=== PATIENT | female | born 1950 | race Caucasian/White ===

== ENCOUNTER → 2017-01-01 | Outpatient (CLI) | payer BC, OTHER ==
[~2017-01-01] VITALS: Ht 162.6 cm; Wt 68.3 kg
[~2017-01-01] MED LIST: ACET325T96 PO; BUPR-79 PO; FLVHFA110 INH; LEVA45AE INH; LISI40TA PO; METO50TA16 PO; PRLSR20 PO; RANI300T2 PO; SIMV40TA2 PO; UMEC1AER INH
[2017-01-01 09:38] VITALS: Ht 162.6 cm; Wt 68.3 kg
--- NOTE | 2017-01-01 10:15 | PAT Medication Instructions ---
Service Date Jan 01, 2017. Current Home Medication List Acetaminophen Tab (Tylenol), 650 MG PO PRN Bupropion (Wellbutrin Sr), 150 MG PO QAM Fluticasone Propionate (Flovent Hfa), 1 PUFFS INH BID Levalbuterol Tartrate (Levalbuterol Tartrate Hfa), 1 PUFF INH QAM Lisinopril (Zestril), 40 MG PO QAM Metoprolol Tartrate (Lopressor) (Lopressor), 50 MG PO BID Omeprazole (Prilosec), 40 MG PO QAM Ranitidine (Zantac), 300 MG PO QAM Simvastatin (Zocor), 40 MG PO for AM Umeclidinium-Vilanterol (Anoro Ellipta 62.5-25 Mcg/INH), 1 DOSE INH QAM Medication Instructions For Your Scheduled Surgery - Hold the following medications the morning of surgery: Lisinopril (Zestril), 40 MG PO QAM - Take the following medications the morning of surgery with a sip of water: Umeclidinium-Vilanterol (Anoro Ellipta 62.5-25 Mcg/INH), 1 DOSE INH QAM Ranitidine (Zantac), 300 MG PO QAM Simvastatin (Zocor), 40 MG PO for AM Omeprazole (Prilosec), 40 MG PO QAM Metoprolol Tartrate (Lopressor) (Lopressor), 50 MG PO BID Fluticasone Propionate (Flovent Hfa), 1 PUFFS INH BID Acetaminophen Tab (Tylenol), 650 MG PO PRN (if needed) Bupropion (Wellbutrin Sr), 150 MG PO QAM Levalbuterol Tartrate (Levalbuterol Tartrate Hfa), 1 PUFF INH QAM (bring with you to hospital on day of surgery) - Take the following medications as scheduled the night before surgery: Metoprolol Tartrate (Lopressor) (Lopressor), 50 MG PO BID Fluticasone Propionate (Flovent Hfa), 1 PUFFS INH BID Acetaminophen Tab (Tylenol), 650 MG PO PRN (if needed) If you have any questions please call us at [phone] or [phone] ( Samantha) or [phone]
[2017-01-01 10:47] LABS: BASO % 0.1 %; BASO ABS # 0.01 K/uL (0-0.2); COMPLETE YES; EOS % 0.8 %; HEMATOCRIT 39.4 % (37-47); IG% 0.1 %; LYMPH % 18.9 %; LYMPH ABS # 1.49 K/uL (1.2-3.4); MEAN CORPUSCULAR HEMOGLOBIN 31.8 pg (25-34); MEAN CORPUSCULAR HGB CONC 32.7 g/dl (32-36); MEAN PLATELET VOLUME 11.4 fL (7.4-10.4); MONO % 8.1 %; PLATELET COUNT 155 K/uL (130-400); RED BLOOD COUNT 4.06 M/uL (4.2-5.4)
[2017-01-01 10:57] LABS: URINE APPEARANCE CLEAR (CLEAR); URINE BILIRUBIN NEG (NEG); URINE COLOR YELLOW; URINE NITRITE NEG (NEG); URINE PH 7.5 (4.5-7.5); URINE SPECIFIC GRAVITY 1.021 (1.000-1.030); UROBILINOGEN NEG (NEG)
[2017-01-01 11:09] LABS: MANUAL MICROSCOPIC REQUIRED? NO; REVIEW REQ? NO
== END | disposition home or self-care (01) ==
LOC: C.LAB 08:00 → EDSTATUS 01-18 09:15
PROVIDERS: ATTEND Orthopaedic Surgery Orthopaedic Surgery of the Spine
DX: Z01.818 Encounter for other preprocedural examination (principal)

== ENCOUNTER 2017-07-21 07:54 | Inpatient (IN) | payer OTHER ==
[2017-06-29 11:54] VITALS: BMI 23.0
--- NOTE | 2017-06-29 12:26 | PAT Medication Instructions ---
Service Date Jun 29, 2017. Current Home Medication List Acetaminophen Tab (Tylenol), 650 MG PO PRN Aspirin (Aspirin Ec), 81 MG PO QAM Bupropion (Wellbutrin Sr), 150 MG PO QAM Fluticasone Furoate-Vilanterol (Breo Ellipta), 1 PUFF INH QAM Fluticasone Propionate (Flovent Hfa), 1 PUFFS INH BID Home O2 Therapy (Oxygen), 2 LITERS NA PRN Hydrocodone/Acetaminophen 5MG/325MG ([place] 5MG/325MG), 1 TABLET PO TID PRN for Pain Lisinopril (Zestril), 20 MG PO QPM Omeprazole (Prilosec), 40 MG PO QAM Ranitidine (Zantac), 300 MG PO QAM Simvastatin (Zocor), 10 MG PO QAM Umeclidinium [place] (Incruse Ellipta), 1 PUFF INH QAM Medication Instructions For Your Scheduled Surgery - Hold the following medications 24 hours prior to surgery: Lisinopril (Zestril), 20 MG PO QPM - Take the following medications the morning of surgery with a sip of water: Umeclidinium [place] (Incruse Ellipta), 1 PUFF INH QAM Simvastatin (Zocor), 10 MG PO QAM Omeprazole (Prilosec), 40 MG PO QAM Ranitidine (Zantac), 300 MG PO QAM Hydrocodone/Acetaminophen 5MG/325MG ([place] 5MG/325MG), 1 TABLET PO TID PRN for Pain (okay to take up to 4 hours prior to surgery if needed) Fluticasone Propionate (Flovent Hfa), 1 PUFFS INH BID Home O2 Therapy (Oxygen), 2 LITERS NA PRN Fluticasone Furoate-Vilanterol (Breo Ellipta), 1 PUFF INH QAM Bupropion (Wellbutrin Sr), 150 MG PO QAM Acetaminophen Tab (Tylenol), 650 MG PO PRN (okay to take up to 4 hours prior to surgery if needed) Aspirin (Aspirin Ec), 81 MG PO QAM If you have any questions please call us at [phone] or [phone] or [phone]
[2017-06-29 13:12] LABS: BASO % 0.4 %; BASO ABS # 0.02 K/uL (0-0.2); EOS % 1.2 %; HEMATOCRIT 40.6 % (37-47); IG% 0.2 %; LYMPH ABS # 1.14 K/uL (1.2-3.4); MEAN CELL VOLUME 95.3 fL (80-100); MEAN CORPUSCULAR HGB CONC 32.5 g/dl (32-36); MEAN PLATELET VOLUME 11.3 fL (7.4-10.4); MONO % 8.1 %; NEUT % 68.1 %; PLATELET COUNT 134 K/uL (130-400); RED BLOOD COUNT 4.26 M/uL (4.2-5.4); WHITE BLOOD COUNT 5.18 K/uL (4.8-10.8)
[2017-06-29 13:14] LABS: URINE APPEARANCE CLEAR (CLEAR); URINE BILIRUBIN NEG (NEG); URINE COLOR YELLOW; URINE NITRITE NEG (NEG); URINE PH 7.5 (4.5-7.5); URINE SPECIFIC GRAVITY 1.017 (1.000-1.030); UROBILINOGEN NEG (NEG)
[2017-06-29 13:24] LABS: MANUAL MICROSCOPIC REQUIRED? NO; REVIEW REQ? NO
[2017-06-29 13:43] LABS: COMPLETE YES
[2017-06-29 14:54] LABS: BUN/CREATININE RATIO 16.5 (10-20); CALCIUM 9.3 mg/dl (8.5-10.1); CREATININE 0.71 mg/dl (0.60-1.20); POTASSIUM 4.1 mmol/L (3.5-5.1)
[~2017-07-21] VITALS: Ht 162.6 cm; Wt 61.8 kg
[2017-07-21] VITALS (13 sets, daily range): BP systolic 91–125; BP diastolic 50–79; PULSE 56–74; TEMP 36.4–37.2; O2SAT 90–98; Ht 162.6 cm; Wt 61.8 kg
[~2017-07-21 07:54] MED LIST changes: +ASPI81TA28 PO; +CEFAZOLIN 1000MG IV PUSH 5 ML IV SCH; +FLUT1INH INH; +HYDR-5688 PO; -LEVA45AE INH; -METO50TA16 PO; +OXGN; +SIMV10TA2 PO; -SIMV40TA2 PO; -UMEC1AER INH; +UMEC1INH INH
[2017-07-21] MEDS ORDERED: DILT120C68 PO (08:27)
[2017-07-21] MEDS ORDERED: DULO-24 PO (08:27)
[2017-07-21] MEDS ORDERED: ATROPINE SULFATE 0.1 MG/ML 5ML SYR IV PRN (08:30)
[2017-07-21] MEDS ORDERED: ONDANSETRON INJ 2 MG/ML 2 ML VIAL IV PRN ×2 (08:30→12:00)
[2017-07-21] MEDS ORDERED: EpHEDrine SULFATE INJ 50 MG/ML AMP IV PRN (08:30)
[2017-07-21] MEDS ORDERED: MoRPHine SULFATE 2 MG/ML CARP IV PRN (08:30)
[2017-07-21] MEDS ORDERED: LACTATED RINGER'S 1000ML 1,000 ML IV SCH ×2 (09:15→09:30)
[2017-07-21] MEDS ORDERED: MIDAZOLAM HCL 1 MG/ML 2ML VIAL ONE (09:18)
[2017-07-21] MEDS ORDERED: FENTANYL CITRATE INJ 50 MCG/1 ML 2 ML VIAL ONE ×2 (09:18→10:32)
--- NOTE | 2017-07-21 09:28 | History & Physical Bridge Note ---
H&P Re-Evaluation Bridge Note: I have examined the patient, reviewed the History & Physical and in the interval since the performance of the History & Physical I have noted the following changes of clinical significance: No changes noted
--- NOTE | 2017-07-21 09:29 | History and Physical ---
History & Physical Date Jul 21, 2017. Chief Complaint Back and leg pain History of Present Illness The patient is a 67 year old female with complaints of back and leg pain Additional History Hepatic Disease: No Endocrine Disorder: No Kidney Disease: No Hypertension: Yes Heart Disease: No Bleeding Tendencies: No Infectious Diseases: No Allergies Coded Allergies: Fentanyl (Verified Allergy, Unknown, ITCHING WITH PATCH, 07/21/17) Furosemide (Verified Allergy, Unknown, ITCHING, 07/21/17) Home Medications Scheduled Acetaminophen Tab (Tylenol), 650 MG PO PRN Aspirin (Aspirin Ec), 81 MG PO QAM Bupropion (Wellbutrin Sr), 150 MG PO QAM Diltiazem Hcl Ext Rel (Tiazac), 90 MG PO Q8 Duloxetine HCl (Cymbalta), 1 CAP PO DAILY Fluticasone Furoate-Vilanterol (Breo Ellipta), 1 PUFF INH QAM Fluticasone Propionate (Flovent Hfa), 1 PUFFS INH BID Home O2 Therapy (Oxygen), 2 LITERS NA PRN Lisinopril (Zestril), 20 MG PO QPM Omeprazole (Prilosec), 40 MG PO QAM Ranitidine (Zantac), 300 MG PO PM Simvastatin (Zocor), 10 MG PO PM Umeclidinium [place] (Incruse Ellipta), 1 PUFF INH QAM Physical Examination Skin: warm/dry, no rash Eyes: normal inspection, EOMI, sclerae normal ENT: normal ENT inspection, pharynx normal Head: normocephalic, atraumatic Neck: supple, no adenopathy, trachea midline Respiratory/Chest: lungs clear, normal breath sounds, no respiratory distress Cardiovascular: regular rate, rhythm, no edema, no murmur Abdomen / GI: normal bowel sounds, non tender Back: normal inspection Extremities: normal inspection, normal range of motion Neurologic/Psych: no motor/sensory deficits, alert, normal reflexes, oriented x 3 Diagnosis Lumbar spinal stenosis Plan of Treatment T lift L4 5 L5-S1
[2017-07-21] MEDS ORDERED: BUPIVACAINE/EPINEPHRINE 0.5% MPF 1:200,000 30 ML VIAL ONE (09:58)
[2017-07-21] MEDS ORDERED: BACITRACIN 50000 UNIT VIAL ONE (09:59)
[2017-07-21] MEDS ORDERED: HYDROmorphone INJ 2 MG/ML SYR/VIAL ONE ×2 (10:32→11:54)
[2017-07-21] MEDS ORDERED: FLOSEAL HEMOSTATIC MATRIX 10ML TOP ONE (11:54)
[2017-07-21] MEDS ORDERED: NEOSTIGMINE METHYLSULFATE 1 MG/ML 10ML VIAL ONE (11:56)
[2017-07-21] MEDS ORDERED: KETOROLAC TROMETHAMINE 30 MG/ML VIAL ONE (11:56)
[2017-07-21] MEDS ORDERED: SODIUM CHLORIDE 0.9% 1000ML 1,000 ML IV SCH (11:56)
[2017-07-21] MEDS ORDERED: EpHEDrine SULFATE 50MG/5ML SYR ONE (11:56)
[2017-07-21] MEDS ORDERED: PROPOFOL IV EMULSION 10 MG/ML 20 ML VIAL IV ONE (11:56)
[2017-07-21] MEDS ORDERED: ONDANSETRON INJ 2 MG/ML 2 ML VIAL ONE (11:56)
[2017-07-21] MEDS ORDERED: DEXAMETHASONE SOD INJ 4 MG/ML VIAL ONE (11:56)
[2017-07-21] MEDS ORDERED: GLYCOPYRROLATE INJ 0.2 MG/ML VIAL ONE (11:56)
[2017-07-21] MEDS ORDERED: ROCURONIUM BROMIDE 10 MG/ML 5 ML VIAL IV ONE (11:56)
[2017-07-21] MEDS ORDERED: LIDOCAINE HCL 2% 2 ML VIAL (20MG/ML) ONE (11:56)
[2017-07-21] MEDS ORDERED: PHENYLEPHRINE 100MCG/ML 5ML SYR ONE (11:56)
[2017-07-21] MEDS ORDERED: CEFAZOLIN IV 1,000 MG in DEXTROSE 5% 50ML 50 ML IV SCH (12:00)
[2017-07-21] MEDS ORDERED: MAGNESIUM HYDROXIDE SUSP 30 ML UDC PO PRN (12:00)
[2017-07-21] MEDS ORDERED: DO NOT ADMINISTER PNEUMOCOCCAL VACCINE PRN ×2 (12:00)
[2017-07-21] MEDS ORDERED: PROMETHAZINE HCL INJ 12.5 MG in SODIUM CHLORIDE 0.9% 50ML 50 ML IV PRN (12:00)
[2017-07-21] MEDS ORDERED: FAMOTIDINE 20 MG TAB PO PRN (12:00)
[2017-07-21] MEDS ORDERED: LORAZEPAM INJ 0.5 MG in SYRINGE 0.75 ML IV PRN (12:00)
[2017-07-21] MEDS ORDERED: ACETAMINOPHEN 500 MG TAB PO PRN (12:00)
[2017-07-21] MEDS ORDERED: DO NOT ADMINISTER FLU VACCINE PRN ×3 (12:00)
[2017-07-21] MEDS ORDERED: BISACODYL 10 MG SUPP PR PRN (12:00)
[2017-07-21] MEDS ORDERED: LORAZEPAM 0.5 MG TAB PO PRN (12:00)
[2017-07-21] MEDS ORDERED: ACETAMINOPHEN 325 MG TAB PO SCH (12:00)
[2017-07-21] MEDS ORDERED: NALOXONE HCL 0.4 MG/1 ML VIAL/CARP IV PRN ×2 (12:00)
[2017-07-21] MEDS ORDERED: ACETAMINOPHEN IV 100 ML IV PRN (12:00)
[2017-07-21] MEDS ORDERED: SOD PHOSPHATE/SOD BIPHOSPHATE ENEMA 132 ML BTL PR PRN (12:00)
[2017-07-21] MEDS ORDERED: hydrOXYzine HCL 25 MG TAB PO PRN (12:00)
[2017-07-21] MEDS ORDERED: ALUMINUM/MAGNESIUM SUSP 30 ML UDC PO PRN (12:00)
[2017-07-21] MEDS ORDERED: METOCLOPRAMIDE HCL INJ 5 MG/ML 2 ML VIAL IV PRN (12:00)
--- NOTE | 2017-07-21 12:03 | [facility] Operative Report ---
Operative Report Operative Date Jul 21, 2017. Pre-Operative Diagnosis Lumbar Spinal Stenosis Post-Operative Diagnosis Lumbar Spinal Stenosis Procedure(s) Performed #1 lumbar decompression medial facetectomies foraminotomies L4 5 L5-S1. #2 posterior spinal fusion L4 5 L5-S1. #3 placement posterior segmental instrumentation L4 5 L5-S1. #4 interbody fusion L5-S1. #5 placement peek cage 12 x 22 mm at L5-S1. #6 placement of locally harvested morcellized autograft posterior gutters. #7 placement infuse collagen sponge by mask graft the posterior gutters and ostial amp in the interbody space. Surgeon Dr. Crawford Maintenance Worker Swimming Pool Surgeon(s) Teresa Christopher PA-C Estimated Blood Loss 450ml Findings Spinal listhesis with spinal stenosis Specimens none per surgeon Description of Procedure Patient was met with preoperatively case discussed all questions addressed. After informed consent was obtained the patient was taken back to the operative suite underwent intubation placed in a prone position the Noe table on top of the Blake frame. All bony prominences were well-padded eyes inspected to ensure no external pressure placed upon them. This point the lumbar spine was prepped and draped in normal sterile fashion. Sharp dissection with the assistance of Bovie cautery was performed onto an exposing the lamina and transverse processes of L4-L5 and the sacral alar bilaterally. From a caudal cephalad fashion complete laminectomy of L5 and L4 was performed addressing severe lateral recess and foraminal stenosis. Pedicle screws were then placed in L4 L5 S1 levels bilaterally with assistance of fluoroscopy in the appropriate least sized laura placed. Through a transforaminal approach on the left complete discectomy of L5-S1 was performed and plate created to subcortical bleeding bone and a 12 x 22 mm peek cage filled with ostial amp bone graft tapped in position. The rods were then locked and final position bilaterally. The transverse processes of L4-L5 and sacral alar burred to subcortical bleeding bone. Infuse collagen sponge mask graft locally harvested morcellized autograft was placed in the posterior lateral gutters. 15 round DYLAN drain inserted. Incision was then closed with 1 Vicryl in the fascia 2-0 Vicryl subcutaneous 4 Monocryl for final skin closure Steri-Strip sterile dressing placed. Patient we can take PACU stable condition. Please note Teresa Hendrix was present at the entire procedure involved in patient positioning complex portions of the surgery and final skin closure. I attest to the content of the Intraoperative Record and any orders documented therein. Any exceptions are noted below.
[2017-07-21] MEDS ORDERED: ALBUTEROL HFA INHALER 8.5 GM INH ONE (12:07)
[2017-07-21] MEDS ORDERED: VOLUVEN IN NSS ONE (12:18)
[2017-07-21] MEDS ORDERED: HYDROmorphone HCL 0.5MG/ML 50 ML CASSETTE ONE (12:18)
[2017-07-21] MEDS: FENTANYL CITRATE INJ 50 MCG/1 ML 2 ML VIAL IV PRN ×2 (12:52→12:57)
--- NOTE | 2017-07-21 13:34 | Anesthesiology Progress Note ---
Anesthesia Post Op Note Date & Time Jul 21, 2017 at 13:34 Vital Signs Pain Intensity: 5 Vital Signs Past 12 Hours Date Time Temp Pulse Resp B/P (MAP) Pulse Ox O2 Delivery O2 Flow Rate FiO2 07/21/17 13:10 36.6 68 16 112/60 100 Nasal Cannula 4 07/21/17 13:00 68 16 104/57 100 Nasal Cannula 4 07/21/17 12:50 69 16 111/63 100 Nasal Cannula 4 07/21/17 12:40 68 16 119/56 100 Nasal Cannula 4 07/21/17 12:30 66 16 109/52 100 Oxymask 10 07/21/17 12:20 63 16 105/51 100 Oxymask 10 07/21/17 12:14 36.9 73 16 111/52 100 Oxymask 10 07/21/17 08:32 36.6 74 20 121/64 (83) 96 Room Air Notes Mental Status: alert / awake / arousable, participated in evaluation Pt Amnestic to Procedure: Yes Nausea / Vomiting: adequately controlled Pain: adequately controlled Airway Patency, RR, SpO2: stable & adequate BP & HR: stable & adequate Hydration State: stable & adequate Anesthetic Complications: no major complications apparent
[2017-07-21] MEDS: SODIUM CHLORIDE 0.9% 1000ML 1,000 ML IV SCH ×2 (14:00→19:49)
[2017-07-21] MEDS: CEFAZOLIN IV 1,000 MG in SYRINGE 0 ML IV SCH ×2 (14:16→22:29)
--- NOTE | 2017-07-21 14:32 | DIAGNOSTIC IMAGING REPORT ---
INTRAOPERATIVE LUMBAR SPINE 2 VIEWS CLINICAL HISTORY: L4-S1 FUSION/INTERBODY COMPARISON STUDY: No previous studies for comparison. FINDINGS: 21 seconds of fluoroscopic time was utilized. 2 fluoroscopic spot images were obtained. There are postsurgical changes of an L5-S1 discectomy and interbody fusion. There is evidence for an L4-S1 decompression and spinal fusion with L4, L5 and, and S1 pedicle screws and adjoining spinal rods IMPRESSION: Intraoperative radiographs demonstrating postsurgical changes at the L4-S1 levels. Electronically signed by: Boy Fuchs M.D. 07/21/2017 2:30 PM Dictated Date/Time: 07/21/2017 2:29 PM
[2017-07-21] MEDS ORDERED: [UNRECOGNIZED DRUG - CODE] (14:34)
[2017-07-21] MEDS ORDERED: CRD30 PO (14:34)
[2017-07-21] MEDS: HYDROmorphone HCL 0.5MG/ML 50 ML CASSETTE IV PRN ×2 (15:01→22:56)
[2017-07-21] MEDS: DILTIAZEM HCL 30 MG TAB PO SCH ×2 (15:43→21:31)
[2017-07-21] MEDS: DOCUSATE SODIUM/SENNA 50/8.6MG TAB PO SCH (20:40)
[2017-07-21] MEDS: LISINOPRIL 20 MG TAB PO SCH (20:40)
[2017-07-21] MEDS: RANITIDINE HCL 150 MG TAB PO SCH (20:41)
[2017-07-21] MEDS: FLUTICASONE HFA 110MCG INHALER INH SCH (20:41)
[2017-07-21] MEDS: SIMVASTATIN 10 MG TAB PO SCH (21:31)
[2017-07-22] VITALS (11 sets, daily range): BP systolic 88–131; BP diastolic 46–66; PULSE 60–69; TEMP 36.7–37.2; O2SAT 90–95
[2017-07-22] MEDS: SODIUM CHLORIDE 0.9% 1000ML 1,000 ML IV SCH (02:24)
[2017-07-22] MEDS ORDERED: NURSING DECISION MEDICATION ORDER SCH (05:30)
[2017-07-22] MEDS ORDERED: HYDROmorphone INJ 1 MG/ML SYR IV PRN (06:00)
[2017-07-22] MEDS ORDERED: HYDROmorphone INJ 0.5 MG/0.5 ML SYR IV PRN (06:00)
[2017-07-22] MEDS ORDERED: DC PCA ONE (06:00)
[2017-07-22 06:31] LABS: BUN/CREATININE RATIO 17.9 (10-20); CALCIUM 7.9 mg/dl (8.5-10.1); CREATININE 0.94 mg/dl (0.60-1.20); POTASSIUM 3.6 mmol/L (3.5-5.1)
[2017-07-22] MEDS: DILTIAZEM HCL 30 MG TAB PO SCH ×3 (06:36→20:46)
[2017-07-22 06:44] LABS: HEMATOCRIT 27.9 % (37-47); MEAN CELL VOLUME 95.2 fL (80-100); MEAN CORPUSCULAR HEMOGLOBIN 30.7 pg (25-34); MEAN CORPUSCULAR HGB CONC 32.3 g/dl (32-36); MEAN PLATELET VOLUME 12.3 fL (7.4-10.4); PLATELET COUNT 92 K/uL (130-400); RED BLOOD COUNT 2.93 M/uL (4.2-5.4)
[2017-07-22 06:45] LABS: COMPLETE YES; IG% 0.4 %; LYMPH % 4.5 %; NEUT % 90.1 %; OVALOCYTES 1+; PLT ESTIMATE DECREASED
--- NOTE | 2017-07-22 07:46 | Clinical Documentation Query ---
EDWINA Babb : CLINICAL DOCUMENTATION QUERIES QUERY 1 OF 2 Patient is a 67 year old female who underwent elective posterior lumbosacral decompression and fusion. Preoperative hemoglobin and hematocrit were 13.2 g/dl and 40.6%. POD #1, repeat values are 9.0 g/dl and 27.9%. EBL for the procedure was 450 ml with subsequently documented losses of 375 ml's to date. Patient is being monitored with serial hematology and I/O. In your clinical opinion is this patient being managed for: ( ) Acute blood loss anemia ( ) Not Agree ( ) Other explanation of clinical findings (Please Explain) ( ) Unable to determine (Please Define) ( ) Need to Discuss The medical record reflects the following clinical findings, treatment, and risk factors. Clinical Indicators: As above Treatment: Serial hematology, I/O including drain outputs. Risk Factors: Acute perioperative blood loss QUERY 2 OF 2 Documentation includes a PMH of only "hypertension". However, home medication list includes: "Acetaminophen Tab (Tylenol), 650 MG PO PRN Aspirin (Aspirin Ec), 81 MG PO QAM Bupropion (Wellbutrin Sr), 150 MG PO QAM Diltiazem Hcl Ext Rel (Tiazac), 90 MG PO Q8 Duloxetine HCl (Cymbalta), 1 CAP PO DAILY Fluticasone Furoate-Vilanterol (Breo Ellipta), 1 PUFF INH QAM Fluticasone Propionate (Flovent Hfa), 1 PUFFS INH BID Home O2 Therapy (Oxygen), 2 LITERS NA PRN Lisinopril (Zestril), 20 MG PO QPM Omeprazole (Prilosec), 40 MG PO QAM Ranitidine (Zantac), 300 MG PO PM Simvastatin (Zocor), 10 MG PO PM Umeclidinium [place] (Incruse Ellipta), 1 PUFF INH QAM". As appropriate, consider clarification as suggested below. Thank you. In your clinical opinion is this patient being managed for: ( ) Hypercholesterolemia, GERD, COPD, depression ( ) Not Agree ( ) Other explanation of clinical findings (Please Explain) ( ) Unable to determine (Please Define) ( ) Need to Discuss The medical record reflects the following clinical findings, treatment, and risk factors. Clinical Indicators: As above Treatment: As above Risk Factors: Age, Diet Please clarify and document your clinical opinion in the progress notes and discharge summary. Terms such as "probable", "suspected", "likely", "questionable", "possible", or "still to be ruled out" are acceptable. IF IN AGREEMENT, YOU MUST DOCUMENT ABOVE DIAGNOSTIC STATEMENT IN DAILY PROGRESS NOTES AND DISCHARGE SUMMARY. This document is not part of the patient's record. Thank You, Gab Olivier, RN [phone]
--- NOTE | 2017-07-22 08:22 | Progress Note ---
Progress Note Date of Service Jul 22, 2017. Progress Note Patient's postop day #1. She is in a chair. Her back pain is controlled. Leg pain improved. Vital signs are stable. Hematocrit stable. On exam she is good strength testing. Assessment status post lumbar decompression fusion replant this time we'll initiate physical therapy advance her bowel regiment anticipate possible home tomorrow with home health.
[2017-07-22] MEDS ORDERED: KETOROLAC TROMETHAMINE 15 MG/ML VIAL IV PRN (08:30)
[2017-07-22] MEDS: FLUTICASONE HFA 110MCG INHALER INH SCH ×2 (08:36→20:46)
[2017-07-22] MEDS: ASPIRIN 81 MG ECTAB PO SCH (08:37)
[2017-07-22] MEDS: BuPROPion SR 150 MG TABCR PO SCH (08:37)
[2017-07-22] MEDS: PANTOprazole SOD 40 MG TAB PO SCH (08:37)
[2017-07-22] MEDS: FLUTICASONE FUROATE-VILANTEROL 60 PUFFS INH INH SCH (08:38)
[2017-07-22] MEDS: UMECLIDINIUM BROMIDE 62.5MCG/INH INH SCH (08:38)
[2017-07-22] MEDS: OXYCODONE HCL IR 5 MG TAB (IMMEDIATE RELEASE) PO PRN ×3 (08:41→20:51)
[2017-07-22] MEDS: DULOXETINE HCL 20 MG CAP PO SCH (09:08)
[2017-07-22] MEDS: SIMVASTATIN 10 MG TAB PO SCH (20:48)
[2017-07-22] MEDS: RANITIDINE HCL 150 MG TAB PO SCH (20:49)
[2017-07-22] MEDS: DOCUSATE SODIUM/SENNA 50/8.6MG TAB PO SCH (20:49)
[2017-07-22] MEDS: LISINOPRIL 20 MG TAB PO SCH (20:49)
[2017-07-23 05:49] VITALS: BP 109/65; PULSE 79
[2017-07-23] MEDS: OXYCODONE HCL IR 5 MG TAB (IMMEDIATE RELEASE) PO PRN ×2 (05:57→12:01)
[2017-07-23] MEDS: DILTIAZEM HCL 30 MG TAB PO SCH (05:58)
[2017-07-23] MEDS ORDERED: POLYETHYLENE (MIRALAX) 17 GM PACK PO SCH (06:00)
[2017-07-23 07:11] VITALS: BP 107/58; PULSE 71; TEMP 36.8; O2SAT 91
[2017-07-23] MEDS: FLUTICASONE FUROATE-VILANTEROL 60 PUFFS INH INH SCH (09:01)
[2017-07-23] MEDS: UMECLIDINIUM BROMIDE 62.5MCG/INH INH SCH (09:02)
[2017-07-23] MEDS: FLUTICASONE HFA 110MCG INHALER INH SCH (09:03)
[2017-07-23] MEDS: DULOXETINE HCL 20 MG CAP PO SCH (09:04)
[2017-07-23] MEDS: PANTOprazole SOD 40 MG TAB PO SCH (09:05)
[2017-07-23] MEDS: ASPIRIN 81 MG ECTAB PO SCH (09:05)
[2017-07-23] MEDS: BuPROPion SR 150 MG TABCR PO SCH (09:05)
[2017-07-23] MEDS ORDERED: RXC5 PO (09:23)
--- NOTE | 2017-07-23 09:24 | Discharge Instructions ---
Discharge Instructions Date of Service Jul 23, 2017. Admission Reason for Admission: Lumbar Spinal Stenosis Discharge Discharge Diagnosis / Problem: lumbar stenosis Discharge Goals Goal(s): Improve function Activity Recommendations Activity Limitations: per Instructions/Follow-up section . Instructions / Follow-Up Instructions / Follow-Up ACTIVITY RECOMMENDATIONS: SELF CARE INSTRUCTIONS AFTER THORACIC/LUMBAR FUSIONS 1. You may walk to your tolerance. It is good exercise for your legs and back. Expect some back and intermittent leg aches and pains. 2. You may perform "counter-top" level activities (make a sandwich, trip with a project, etc.). 3. No bending or lifting of more than 10 pounds or back twisting of any nature (roll like a log when turning in bed). 4. You may ride in a car for 20-30 minutes at a time. No driving until after your first visit with your doctor. 5. Frequent changes of position and restricting sitting to 30 minutes at a time will help limit the amount of back spasms and stiffness you may experience. 6. You may discontinue the use of ambulatory aids (cane, crutches, etc.) once your strength and confidence allow. 7. You may case preparer and liner the shower and let water strike your incision when you arrive home at least once daily. Do not take a tub bath, sit in a hot tub or go into a swimming pool until after your first recheck in the office. SPECIAL CARE INSTRUCTIONS: VERY IMPORTANT TO READ AND REVIEW A. Your surgical incision has been closed with a cosmetic suture under the skin that will dissolve in about 6 weeks. In 14 days, you can use a pair of clean scissors and cut the suture that is left outside of the skin at the ends of your incision. 1. The small skin tapes can be removed 7 days after surgery if they have not fallen off by that point. 2. You may keep the wound open to air as much as possible to promote healing after post-op day number 5 unless told otherwise by your doctor. 3. If you think the wound looks like it is becoming infected (redness or worsening drainage) and/or you are experiencing fever, chill or worsening back pain and muscle spasms, contact the office so that we may evaluate you as soon as possible. B. Complications are uncommon, but please contact us if you have any signs or symptoms of: 1. wound infection (fever higher than 102.5 degrees F, redness, separation of wound, drainage, or increasing pain from the incision) 2. blood clots in legs (pain, swelling, redness and warmth in legs) 3. urinary tract infection (fever higher than 102.5 degrees F, burning upon urination or increased frequency of urination) 4. nerve problems (inability to walk on your toes or heels, numbness, loss of bowel or bladder control) 5. any other symptoms that concern you C. Please call the office at if you have any concerns or questions about your operation or recovery. D. No smoking! Smoking drastically decreases the chance of a solid fusion. E. Do not take any anti-inflammatory medications (Indocin, Advil, Motrin, Aspirin, Naprosyn, etc.) as these may inhibit the chance of a solid fusion. Tylenol is okay to take for pain. MANAGING PAIN AFTER SPINAL SURGERY 1. Narcotic medication is intended for short-term use and will be provided for surgical pain. Surgical pain usually lasts for a period of 4-6 weeks. Narcotic medication includes Percocet, Vicodin, Darvocet, Tylenol #3 or Lortab. 2. Longer-term pain is more appropriately treated with non-narcotic medication such as Tylenol ES. 3. Muscle spasm is not appropriately treated with narcotics. Muscle relaxers such as Soma, Flexeril or Skelaxin can be used along with Tylenol ES. 4. Remember that we all live with some "aches and pains". This is not unusual or uncommon after an injury or as we get older. a. Back pain is expected and may include muscle spasms for 4 to 6 weeks after surgery. The pain should gradually improve. If the pain worsens for no apparent reason, please contact the office. b. Intermittent leg pain may also be experienced and should not be concerned about unless it worsens for no apparent reason. If so, please contact the office. 5. We will provide appropriate medication within the normal guidelines of their prescribed use. We will also be very cautious and aware of potential abuse and extended duration of patients' medication needs. a. Pain medications are for your comfort and to assist with sleep and rest so that the tissue can heal. They are not provided in order to return to normal activity and should not be used through the day. To do so or worsening pain at night can result from ongoing tissue damage and development of tolerance to the prescribed medicine. 6. Please allow 2-3 days to process refills. Prescriptions will not be mailed but must be picked up at the office. FOLLOW UP VISIT: Keep your scheduled follow-up appointment. Any questions, please call the office at . Current Hospital Diet Patient's current hospital diet: Regular Diet Discharge Diet Recommended Diet: Regular Diet Procedures Procedures Performed: #1 lumbar decompression medial facetectomies foraminotomies L4 5 L5-S1. #2 posterior spinal fusion L4 5 L5-S1. #3 placement posterior segmental instrumentation L4 5 L5-S1. #4 interbody fusion L5-S1. #5 placement peek cage 12 x 22 mm at L5-S1. #6 placement of locally harvested morcellized autograft posterior gutters. #7 placement infuse collagen sponge by mask graft the posterior gutters and ostial amp in the interbody space. Pending Studies Studies pending at discharge: no Medical Emergencies . Who to Call and When: Medical Emergencies: If at any time you feel your situation is an emergency, please call 911 immediately. . Non-Emergent Contact Non-Emergency issues call your: Primary Care Provider . "Provider Documentation" section prepared by Barrett Crawford. . VTE Core Measure Inpt VTE Proph given/why not?: Luis Felipe Shah, SCD's
--- NOTE | 2017-07-23 09:58 | Discharge Summary ---
Orthopedic Discharge Summary Admission Date/Reason Jul 21, 2017 at 09:50 Lumbar Spinal Stenosis. Discharge Date/Disposition Jul 23, 2017 Home with services Diagnosis Principal Diagnosis: Lumbar spinal stenosis Admission Physical Exam As per Admitting History & Physical. Hospital Course Patient underwent lumbar decompression fusion tolerated this well as taken to the orthopedic floor postop we. Postoperative day #1 she was up and amatory progressed nicely through postoperative day #2 was socially discharge home. Discharge orders and instructions found the chart for further review. Discharge Instructions Please refer to the electronic Patient Visit Report (Discharge Instructions) for additional information.
[2017-07-23 12:16] VITALS: BP 107/58; PULSE 71; TEMP 36.8; O2SAT 91
[2017-07-31] MEDS ORDERED: OXYC1TAB3 PO (17:10)
== END 2017-07-23 12:55 | disposition home health service (06) | DRG 455 ==
LOC: C.ACU 07:54 → C.3E 09:50 → ENRESERV 12:35
PROVIDERS: ADMIT Orthopaedic Surgery Orthopaedic Surgery of the Spine; ATTEND Orthopaedic Surgery Orthopaedic Surgery of the Spine
PROC: 0SG30AJ Fusion of Lumbosacral Joint with Interbody Fusion Device, Posterior Approach, Anterior Column, Open Approach (ICD-10-PCS; principal; 2017-07-21 10:15)
PROC: 0SG3071 Fusion of Lumbosacral Joint with Autologous Tissue Substitute, Posterior Approach, Posterior Column, Open Approach (ICD-10-PCS; principal; 2017-07-21 10:15)
PROC: 0ST40ZZ Resection of Lumbosacral Disc, Open Approach (ICD-10-PCS; principal; 2017-07-21 10:15)
PROC: 0SG0071 Fusion of Lumbar Vertebral Joint with Autologous Tissue Substitute, Posterior Approach, Posterior Column, Open Approach (ICD-10-PCS; principal; 2017-07-21 10:15)
DX: M48.061 Spinal stenosis, lumbar region without neurogenic claudication (principal); I10 Essential (primary) hypertension; Z79.899 Other long term (current) drug therapy; Z79.82 Long term (current) use of aspirin

== ENCOUNTER 2017-07-31 14:30 | Emergency (ER) | payer OTHER ==
[~2017-07-31] VITALS: Ht 162.6 cm; Wt 61.0 kg
[~2017-07-31 14:30] MED LIST changes: +ACET-1693 PO; -ACET325T96 PO; -CEFAZOLIN 1000MG IV PUSH 5 ML IV SCH; +CRD30 PO; +DULO-24 PO; -HYDR-5688 PO; +RXC5 PO
[2017-07-31 14:38] VITALS: TEMP 36.9; Ht 162.6 cm; Wt 61.0 kg
[2017-07-31] MEDS ORDERED: ONDANSETRON INJ 2 MG/ML 2 ML VIAL IV STA (15:04)
--- NOTE | 2017-07-31 15:09 | EMERGENCY ROOM VISIT NOTE ---
History Report prepared by Tor: Jody Huerta Under the Supervision of: Dr. Tadeo Ponce D.O. First contact with patient: 14:51 Chief Complaint: BACK PAIN Stated Complaint: BACK,LEG PAIN,HAD BACK SURGERY 07/21 History of Present Illness The patient is a 67 year old female who presents to the Emergency Room with complaints of constant low back pain for three days CHUCKER. The patient recently had back surgery ten days ago. She notes the back pain has worsened over the last three days and is now radiating to her left leg. She notes numbness in her left leg. She also notes chills, coughs, shortness of breath and loss of sleep. She currently rates her pain a 10/10 in severity. The patient takes daily diuretics. She notes a history of abdominal aortic aneurysm and brain aneurysms. She has a history of CAD. She is not taking any steroids. She is a former smoker. Source of History: patient Onset: three days CHUCKER Position: back (lower) Symptom Intensity: 10/10 Timing: constant Associated Symptoms: + chills, + SOB, + numbness (left leg numbness) Note: She notes loss of sleep. Review of Systems See HPI for pertinent positives & negatives. A total of 10 systems reviewed and were otherwise negative. Past Medical & Surgical Medical Problems: (1) Lumbar stenosis with neurogenic claudication Family History No pertinent family history reported. Social History Smoking Status: Former Smoker Alcohol Use: none Drug Use: none Housing Status: lives with family Occupation Status: retired Current/Historical Medications Scheduled Acetaminophen Tab (Tylenol), 650 MG PO PRN Aspirin (Aspirin Ec), 81 MG PO QAM Bupropion (Wellbutrin Sr), 150 MG PO QAM Diltiazem HCl (Diltiazem HCl), 90 MG PO Q8 Duloxetine HCl (Cymbalta), 20 MG PO DAILY Fluticasone Furoate-Vilanterol (Breo Ellipta), 1 PUFF INH QAM Fluticasone Propionate (Flovent Hfa), 1 PUFFS INH BID Lisinopril (Zestril), 20 MG PO QPM Methylprednisolone (Medrol Dosepak), 0 PO DAILY Omeprazole (Prilosec), 40 MG PO QAM Ranitidine (Zantac), 300 MG PO PM Simvastatin (Zocor), 10 MG PO PM Umeclidinium [place] (Incruse Ellipta), 1 PUFF INH QAM Scheduled PRN Oxycodone HCl (Oxycodone HCl), 5-10 MG PO Q4H PRN for Moderate - severe pain Oxycodone Immediate Rel Tab (Roxicodone Ir), 1-2 TAB PO Q4H PRN for Severe Pain Allergies Coded Allergies: Fentanyl (Verified Allergy, Unknown, ITCHING WITH PATCH, 07/31/17) Furosemide (Verified Allergy, Unknown, ITCHING, 07/31/17) Physical Exam Vital Signs Date Time Temp Pulse Resp B/P (MAP) Pulse Ox O2 Delivery O2 Flow Rate FiO2 07/31/17 18:28 93 125/68 93 07/31/17 16:28 86 17 143/75 92 Room Air 07/31/17 15:31 87 17 145/77 94 Room Air 07/31/17 14:38 36.9 94 18 143/78 95 Physical Exam GENERAL: Patient is awake, alert, anxious and uncomfortable appearing. EYES: The conjunctivae are clear. The pupils are round and reactive. EARS, NOSE, MOUTH AND THROAT: The nose is without any evidence of any deformity. Mucous membranes are moist tongue is midline NECK: The neck is nontender and supple. RESPIRATORY: Scattered rhonchi noted throughout. No tachypnea or conversational dyspnea noted. CARDIOVASCULAR: Regular rate and rhythm noted there no murmurs rubs or gallops normal S1 normal S2 GASTROINTESTINAL: The abdomen is soft. Bowel sounds are present in all quadrants. Abdomen is nontender BACK: Surgical site noted in lumbar spine. There is swelling, no erythema, dehiscence, or drainage noted. MUSCULOSKELETAL/EXTREMITIES: There is no evidence of gross deformity full range of motion is noted in the hips and shoulders SKIN: There is no obvious evidence of any rash. There are no petechiae, pallor or cyanosis noted. NEUROLOGIC: Patient is awake alert and oriented x3 strength is symmetric patellar reflexes are 1+ bilaterally. Achilles tendon reflexes 1+ bilaterally. Great toe raises are symmetric. Medical Decision & Procedures ER Provider Diagnostic Interpretation: Radiology results as stated below per my review and radiologist interpretation: CHEST ONE VIEW PORTABLE CLINICAL HISTORY: 67 years-old Female presenting with cough. TECHNIQUE: Portable upright AP view of the chest was obtained. COMPARISON: None. FINDINGS: Atherosclerosis of the aortic arch. Cardiac silhouette normal in size. Lungs mild hyperinflated resulting in blunting of the bilateral costophrenic angles. No focal infiltrate. No large effusion or pneumothorax. Partially visualized anterior cervical fusion hardware. Upper abdomen normal. IMPRESSION: 1. Mild hyperinflation. Otherwise no acute cardiopulmonary disease. Electronically signed by: Antonio Deras M.D. 07/31/2017 3:28 PM Dictated Date/Time: 07/31/2017 3:27 PM Laboratory Results 07/31/17 15:25 Red Blood Count 3.57, Mean Corpuscular Volume 93.6, Mean Corpuscular Hemoglobin 30.3, Mean Corpuscular Hemoglobin Concent 32.3, Mean Platelet Volume 9.4, Neutrophils (%) (Auto) 77.8, Lymphocytes (%) (Auto) 14.6, Monocytes (%) (Auto) 6.7, Eosinophils (%) (Auto) 0.6, Basophils (%) (Auto) 0.2, Neutrophils # (Auto) 6.52, Lymphocytes # (Auto) 1.22, Monocytes # (Auto) 0.56, Eosinophils # (Auto) 0.05, Basophils # (Auto) 0.02 07/31/17 15:25 Test 07/31/17 15:25 07/31/17 16:35 White Blood Count 8.38 K/uL (4.8-10.8) Red Blood Count 3.57 M/uL (4.2-5.4) Hemoglobin 10.8 g/dL (12.0-16.0) Hematocrit 33.4 % (37-47) Mean Corpuscular Volume 93.6 fL (80-100) Mean Corpuscular Hemoglobin 30.3 pg (25-34) Mean Corpuscular Hemoglobin Concent 32.3 g/dl (32-36) Platelet Count 304 K/uL (130-400) Mean Platelet Volume 9.4 fL (7.4-10.4) Neutrophils (%) (Auto) 77.8 % Lymphocytes (%) (Auto) 14.6 % Monocytes (%) (Auto) 6.7 % Eosinophils (%) (Auto) 0.6 % Basophils (%) (Auto) 0.2 % Neutrophils # (Auto) 6.52 K/uL (1.4-6.5) Lymphocytes # (Auto) 1.22 K/uL (1.2-3.4) Monocytes # (Auto) 0.56 K/uL (0.11-0.59) Eosinophils # (Auto) 0.05 K/uL (0-0.5) Basophils # (Auto) 0.02 K/uL (0-0.2) RDW Standard Deviation 46.7 fL (36.4-46.3) RDW Coefficient of Variation 13.5 % (11.5-14.5) Immature Granulocyte % (Auto) 0.1 % Immature Granulocyte # (Auto) 0.01 K/uL (0.00-0.02) Erythrocyte Sedimentation Rate 60 mm/hr (0-21) Anion Gap 8.0 mmol/L (3-11) Est Creatinine Clear Calc Drug Dose 80.2 ml/min Estimated GFR () 109.8 Estimated GFR (Non- 94.7 BUN/Creatinine Ratio 20.1 (10-20) Calcium Level 8.9 mg/dl (8.5-10.1) Total Bilirubin 0.4 mg/dl (0.2-1) Direct Bilirubin < 0.1 mg/dl (0-0.2) Aspartate Amino Transf (AST/SGOT) 17 U/L (15-37) Alanine Aminotransferase (ALT/SGPT) 24 U/L (12-78) Alkaline Phosphatase 132 U/L (45-117) C-Reactive Protein 5.14 mg/dl (0-0.29) Total Protein 7.5 gm/dl (6.4-8.2) Albumin 3.4 gm/dl (3.4-5.0) Lipase 135 U/L (73-393) Urine Color YELLOW Urine Appearance CLEAR (CLEAR) Urine pH 6.0 (4.5-7.5) Urine Specific Mentcle 1.024 (1.000-1.030) Urine Protein NEG (NEG) Urine Glucose (UA) NEG (NEG) Urine Ketones 3+ (NEG) Urine Occult Blood NEG (NEG) Urine Nitrite NEG (NEG) Urine Bilirubin NEG (NEG) Urine Urobilinogen NEG (NEG) Urine Leukocyte Esterase NEG (NEG) Laboratory results per my review. Medications Administered Medications (Trade) Dose Ordered Sig/Marla Route Start Time Stop Time Status Last Admin Dose Admin Morphine Sulfate (MoRPHine SULFATE INJ) 4 mg Q15M PRN IV 07/31/17 15:15 07/31/17 18:36 DC 07/31/17 15:29 4 MG Ondansetron HCl (Zofran Inj) 4 mg NOW STAT IV 07/31/17 15:04 07/31/17 15:06 DC 07/31/17 15:29 4 MG Dexamethasone Sodium Phosphate (Dexamethasone Inj Pf) 10 mg NOW ONCE PO 07/31/17 17:00 07/31/17 17:01 DC 07/31/17 17:14 10 MG Albuterol/ Ipratropium (Duoneb) 3 ml NOW STAT INH 07/31/17 17:46 07/31/17 17:47 DC 07/31/17 17:50 3 ML ED Course 1500: The patient was evaluated in room C1. A complete history and physical examination were performed. 1504: Ordered Zofran 4 mg IV 1515: Ordered Morphine Sulfate 4 mg IV 1654: I spoke with Dr. Crawford, orthopedic surgeon. We discussed the patients case. He recommends steroid treatment and he will follow up with the her as an outpatient. 1700: Ordered Dexamethasone Sodium Phosphate 10 mg PO 1740: I reassessed the patient at this time. She is feeling better and resting comfortably. I discussed the results and treatment plan with the patient. I answered all pertaining questions that she had. She expressed understanding and verbalized agreement. The patient will be discharged home. 1746: Ordered DuoNeb 3 ml INH Medical Decision Prior records/ancillary studies reviewed. Triage Nursing notes reviewed. The patient's history was concerning for back pain. Differential diagnosis: Etiologies such as musculoskeletal, disc herniation, fracture, aortic disease, metastatic disease, cord compression, discitis, infection, renal colic, gastrointestinal, acute exacerbation of chronic back pain, sciatica, cauda equina, as well as others were entertained. The patient is a 67-year-old female who presented to the emergency department for evaluation of back pain. The patient had recent lumbar decompression surgery. Her surgical site is well healing. There is no external signs of infection. The patient was treated with IV pain medication in the emergency department. I discussed her case with her primary orthopedic spinal surgeon. At this time I've recommended that the patient start back on her pain medication. She was given a dose of Decadron in the emergency department after I discussed her case with her primary surgeon. She was also started on a Medrol Dosepak as well as pain medication as an outpatient. She had some wheezing prior to discharge. She states that this was consistent with her COPD but she was given a DuoNeb prior to discharge. I discussed the patient's laboratory radiographic studies with her. She was encouraged to continue all medications as prescribed. She was also encouraged to follow-up with her primary surgeon next week or return to the emergency department in 24 hours if the symptoms are not significantly improved or if the need arises. Medication Reconcilliation Current Medication List: was personally reviewed by me Blood Pressure Screening Patient's blood pressure: Elevated blood pressure Blood pressure disposition: Elevated BP felt to be situational Consults Time Called: 1650 Consulting Physician: Dr. Crawford, orthopedic surgeon Returned Call: [phone] Crawford, orthopedic surgeon. We discussed the patients case. He recommends steroid treatment and he will follow up with the her as an outpatient. Impression Primary Impression: Postoperative back pain Additional Impression: Low back pain Scribe Attestation The scribe's documentation has been prepared under my direction and personally reviewed by me in its entirety. I confirm that the note above accurately reflects all work, treatment, procedures, and medical decision making performed by me. Departure Information Dispostion Home / Self-Care Prescriptions Oxycodone Immediate Rel Tab (ROXICODONE IR) 5 Mg Tab 1-2 TAB PO Q4H Y for Severe Pain, #30 TAB Prov: Tadeo Ponce, DO 07/31/17 Methylprednisolone (MEDROL DOSEPAK) 4 Mg Abram 0 PO DAILY, #1 PKT Prov: Tadeo Ponce, DO 07/31/17 Referrals Herman Bhandari D.O. (PCP) Forms HOME CARE DOCUMENTATION FORM, IMPORTANT VISIT INFORMATION Patient Instructions ED Low Back Pain Injury, ED Post Op Pain, [facility] Additional Instructions Call Dr. Crawford to schedule a follow-up appointment for this week. Rest and avoid any strenuous activity. Continue all other medications as prescribed. Return to the emergency department immediately if symptoms change worsen or the need arises. Problem Qualifiers Additional Impression: Low back pain Chronicity: acute Back pain laterality: midline Sciatica presence: unspecified whether sciatica present Qualified Codes: M54.5 - Low back pain
[2017-07-31] MEDS ORDERED: MoRPHine SULFATE 4 MG/ML 1 ML CARP\\VIAL IV PRN (15:15)
--- NOTE | 2017-07-31 15:30 | DIAGNOSTIC IMAGING REPORT ---
CHEST ONE VIEW PORTABLE CLINICAL HISTORY: 67 years-old Female presenting with cough. TECHNIQUE: Portable upright AP view of the chest was obtained. COMPARISON: None. FINDINGS: Atherosclerosis of the aortic arch. Cardiac silhouette normal in size. Lungs mild hyperinflated resulting in blunting of the bilateral costophrenic angles. No focal infiltrate. No large effusion or pneumothorax. Partially visualized anterior cervical fusion hardware. Upper abdomen normal. IMPRESSION: 1. Mild hyperinflation. Otherwise no acute cardiopulmonary disease. Electronically signed by: Antonio Deras M.D. 07/31/2017 3:28 PM Dictated Date/Time: 07/31/2017 3:27 PM
[2017-07-31 15:33] LABS: BASO % 0.2 %; BASO ABS # 0.02 K/uL (0-0.2); EOS % 0.6 %; EOS ABS # 0.05 K/uL (0-0.5); HEMATOCRIT 33.4 % (37-47); HEMOGLOBIN 10.8 g/dL (12.0-16.0); IG# 0.01 K/uL (0.00-0.02); LYMPH % 14.6 %; LYMPH ABS # 1.22 K/uL (1.2-3.4); MEAN CELL VOLUME 93.6 fL (80-100); MEAN CORPUSCULAR HEMOGLOBIN 30.3 pg (25-34); MEAN CORPUSCULAR HGB CONC 32.3 g/dl (32-36); MEAN PLATELET VOLUME 9.4 fL (7.4-10.4); MONO % 6.7 %; MONO ABS # 0.56 K/uL (0.11-0.59); NEUT % 77.8 %; NEUT ABS # 6.52 K/uL (1.4-6.5); PLATELET COUNT 304 K/uL (130-400); RED CELL DISTRIBUTION WIDTH CV 13.5 % (11.5-14.5); RED CELL DISTRIBUTION WIDTH SD 46.7 fL (36.4-46.3); WHITE BLOOD COUNT 8.38 K/uL (4.8-10.8)
[2017-07-31 15:52] LABS: ALBUMIN 3.4 gm/dl (3.4-5.0); ALT/SGPT 24 U/L (12-78); BLOOD UREA NITROGEN 12 mg/dl (7-18); CALCIUM 8.9 mg/dl (8.5-10.1); CARBON DIOXIDE 24 mmol/L (21-32); CREATININE 0.58 mg/dl (0.60-1.20); GLUCOSE 82 mg/dl (70-99); LIPASE 135 U/L (73-393); POTASSIUM 3.4 mmol/L (3.5-5.1); SODIUM 139 mmol/L (136-145)
[2017-07-31 15:55] LABS: ALKALINE PHOSPHATASE 132 U/L (45-117); AST/SGOT 17 U/L (15-37); TOTAL PROTEIN 7.5 gm/dl (6.4-8.2)
[2017-07-31] MEDS ORDERED: DEXAMETHASONE **PF** INJ 10 MG/ML VIAL PO ONE (17:00)
[2017-07-31] MEDS ORDERED: METH4PAK PO (17:10)
[2017-07-31] MEDS ORDERED: OXYC-737 PO (17:10)
[2017-07-31] MEDS ORDERED: ALBUT/IPRATROP 3MG/0.5MG NEB 3 ML VIAL INH STA (17:46)
[2017-07-31 18:28] VITALS: BP 125/68; PULSE 93; O2SAT 93
== END 2017-07-31 18:29 | disposition home or self-care (01) ==
LOC: C.EDB 14:34 → C.EDC 18:29
DX: G89.18 Other acute postprocedural pain (principal); M54.5 Low back pain; Z87.891 Personal history of nicotine dependence; Z79.82 Long term (current) use of aspirin